=== PATIENT | female | born 1990 | race Caucasian/White ===

== ENCOUNTER 2016-04-18 23:08 | Emergency (ER) | payer MEDICAID, OTHER ==
[2016-04-18] MEDS ORDERED: Lidocaine PATCH 5%* 1 PATCH TRANSDERM SCH (23:45)
[2016-04-18] MEDS ORDERED: Acetaminophen TAB* 325 MG PO ONE (23:51)
[2016-04-18] MEDS ORDERED: Cyclobenzaprine TAB* 10 MG PO ONE (23:51)
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
[2016-04-19 02:30] VITALS: BP 87/71
--- NOTE | 2016-04-19 08:02 | RAD ---
HISTORY: Trauma, back pain COMPARISONS: November 15, 2012 VIEWS: 3, Frontal and lateral views of the thoracic spine. FINDINGS: ALIGNMENT: The alignment is normal. VERTEBRAL BODIES: The vertebral body heights are normal. The interpedicular distances are normal. JOINTS: Unremarkable. INTERVERTEBRAL DISCS: There is diffuse loss of intervertebral disc height. SOFT TISSUE: Unremarkable OTHER: The visualized lungs are clear. IMPRESSION: DEGENERATIVE CHANGES
[2016-04-19] MEDS ORDERED: Lidocaine Patch REMOVE* 1 NOTE MISC PATCH OFF SCH (21:00)
== END 2016-04-19 02:28 | disposition home or self-care (01) ==
LOC: ED 23:08
DX: S39.92XA Unspecified injury of lower back, initial encounter (principal); M54.5 Low back pain; V47.5XXA Car driver injured in collision with fixed or stationary object in traffic accident, initial encounter; Y93.9 Activity, unspecified; Y92.9 Unspecified place or not applicable; Y99.9 Unspecified external cause status
CPT/HCPCS: 72080; 99283; A9270-GY

== ENCOUNTER 2016-08-31 14:55 | Emergency (ER) | payer MEDICAID, OTHER ==
[2016-08-31 15:15] VITALS: BP 121/86
--- NOTE | 2016-08-31 15:27 | UC ---
Laceration HPI - HPI Summary HPI Summary: complaint of cutting her right thumb on a glass glass broke and sliced hier finger lots of bleeding and she thimks there is glass in the incision last tetanus 2.5 years ago when he daughter was born - History Of Current Complaint Chief Complaint: UCLaceration Stated Complaint: FINGER LACERATION Time Seen by Provider: 08/31/16 15:05 Hx Obtained From: Patient Laceration Location: Finger - Allergies/Home Medications Allergies/Adverse Reactions: Allergies Allergy/AdvReac Type Severity Reaction Status Date / Time No Known Allergies Allergy Verified 08/31/16 15:15 PMH/Surg Hx/FS Hx/Imm Hx Previously Healthy: Yes Endocrine History Of: Denies: Diabetes Cardiovascular History Of: Denies: Cardiac Disorders, Hypertension, Pacemaker/ICD Respiratory History Of: Reports: Asthma - WILL BRING INHALER, Bronchitis Denies: COPD, Pneumonia, Pulmonary Embolism GI/ History Of: Denies: Ulcer Neurological History Of: Reports: Migraine Denies: TIA, CVA, Dementia, Seizures Psychological History Of: Reports: Anxiety - NO MEDS, Depression - NO MEDS, Bipolar Disorder Denies: Schizophrenia Cancer History Of: Denies: Lung Cancer Other History Of: Negative For: Anticoagulant Therapy - Surgical History Surgical History: Yes Surgery Procedure, Year, and Place: APPENDECTOMY, OVARIAN CYST EXCISION AGE 15 [facility]. CSECTION 2013 [facility]. [facility] W[facility]ST 06/2015, [facility] - Family History Known Family History: Positive: Unknown Negative: Cardiac Disease, Hypertension, Diabetes Family History: NON CONTRIBUTORY - Social History Occupation: Employed Full-time Lives: With Family Alcohol Use: None Substance Use Type: None Substance Use Comment - Amount & Last Used: None at present. hx: documented use on 05/21/13, 07/17/13, 07/29/13 Smoking Status (MU): Heavy Every Day Tobacco Smoker Type: Cigarettes Amount Used/How Often: 1 ppd Length of Time of Smoking/Using Tobacco: 5-7 YRS Have You Smoked in the Last Year: Yes When Did the Patient Quit Smoking/Using Tobacco: 1 PPD Household Exposure Type: Cigarettes Cessation Counseling: Patient Advised to Stop - Immunization History Most Recent Influenza Vaccination: unsure Most Recent Tetanus Shot: unsure Most Recent Pneumonia Vaccination: none Review of Systems Constitutional: Negative Skin: Other - laceration Eyes: Negative ENT: Negative Respiratory: Negative Cardiovascular: Negative Gastrointestinal: Negative Genitourinary: Negative Motor: Negative Neurovascular: Negative Musculoskeletal: Negative Neurological: Negative Psychological: Negative All Other Systems Reviewed And Are Negative: Yes Physical Exam Triage Information Reviewed: Yes Appearance: No Pain Distress, Well-Nourished Vital Signs: Initial Vital Signs Temp 97.8 F 08/31/16 15:10 Pulse 85 08/31/16 15:10 Resp 20 08/31/16 15:10 BP 121/86 08/31/16 15:10 Pulse Ox 99 08/31/16 15:10 Vital Signs Reviewed: Yes Eyes: Positive: Conjunctiva Clear ENT: Positive: Pharynx normal, TMs normal Neck: Positive: No Lymphadenopathy Respiratory: Positive: Lungs clear, Normal breath sounds, No respiratory distress Cardiovascular: Positive: RRR, No Murmur, Pulses Normal Abdomen Description: Positive: Nontender, Soft Bowel Sounds: Positive: Present Musculoskeletal: Positive: Other: - right thumb- 6mm laceration medial side of thumb underneath fingernail Neurological: Positive: Alert Psychological Exam: Normal Skin: Positive: Other - see muckuloskeletal Laceration Repair - Laceration Repair 1 Description: Linear - small peice of galss removed with forcep splinters Laceration Size After Repair: Length (cm) - 6mm, Width (mm) - 2mm, Depth (mm) - 2mm Modified For Repair: No Cleansing Completed Via Routine Prep: Yes Irrigation With Pressure Irrigation Device: No Closure Material: Skin Adhesive, SteriStrips Laceration Course/Dx - Differential Dx - Laceration/Wound Differental Diagnoses: Laceration Provider Diagnoses: laceration - right thumb Discharge - Discharge Plan Condition: Stable Disposition: HOME Patient Education Materials: Skin Adhesive Care (ED), Steristrips (ED) Forms: *Work Release Referrals: Marcos Recio MD [Primary Care Provider] - Additional Instructions: LACERATION What is a Laceration? Laceration is the medical name for a cut. Treatment Recommendations: Keep the wound clean and dry for at least the next two (2) days. Keep the dressing clean if at all possible. If you must work in surroundings that will dirty the wound or dressing, wear a protective covering such as a glove. If the wound does get dirty, clean it as soon as you can with mild soap and water using a patting action. Do not rub or scrub vigorously. Then pat it dry completely. If a dressing was placed on the wound, you should put a clean one on at least daily and whenever you clean the wound. You can apply antibiotic ointment such as Bacitracin ointment to the wound each time you change the dressing. Avoid using the injured part as much as possible. If the wound is near a joint , try not to bend the joint too much. Call Your Doctor or Return Here IF: Your wound becomes red, warm, swollen or more painful. There are red streaks coming from the wound. You develop a fever or shaking chills. Pus or bad smelling fluid comes out of the wound. You have any other symptoms that worry you.
[2016-08-31] MEDS ORDERED: Benzoin Compound STICK ONE (15:32)
[2016-08-31] MEDS ORDERED: Lidocaine 2% 10 ML* VIAL INJ ONE (15:45)
[2016-08-31] MEDS ORDERED: Lidocaine 2% PF * 5 ML VIAL ONE (15:47)
== END 2016-08-31 16:12 | disposition home or self-care (01) ==
LOC: UCEAST 14:55
DX: S61.011A Laceration without foreign body of right thumb without damage to nail, initial encounter (principal); W25.XXXA Contact with sharp glass, initial encounter; Y93.9 Activity, unspecified; Y99.9 Unspecified external cause status; F17.210 Nicotine dependence, cigarettes, uncomplicated
CPT/HCPCS: 12001; 99211; G0463; J2001

== ENCOUNTER → 2016-09-21 17:27 | Emergency (ER) | payer OTHER, MEDICAID ==
[2016-09-21 19:01] VITALS: BP 100/44
== END | disposition left against medical advice (07) ==
LOC: ED 17:27
DX: R53.1 Weakness (principal)
CPT/HCPCS: 93005

== ENCOUNTER 2017-05-11 07:15 | Inpatient (IN) | payer OTHER, MEDICAID ==
[2017-05-11] MEDS ORDERED: ceFOXitin 2 GM IVPREMIX* 2 GM/50 ML BAG ONE (07:55)
[2017-05-11] MEDS ORDERED: Sodium Citrate/Citric Acid* 15 ML UDC ONE (07:55)
[2017-05-11 08:05] LABS: Hematocrit 37 % (35-47); Hemoglobin 12.6 g/dl (12.0-16.0); Mean Corpuscular HGB Conc 34 g/dl (31-36); Mean Corpuscular Hemoglobin 32 pg (27-31); Mean Corpuscular Volume 95 fL (80-97); Mean Platelet Volume 9 um3 (7.4-10.4); Platelet Count 309 10^3/ul (150-450); Red Blood Count 3.89 10^6/ul (4.0-5.4); Red Cell Distribution Width 13 % (10.5-15); White Blood Count 16.1 10^3/ul (3.5-10.8)
[2017-05-11 08:55] LABS: ABS Basophils 0.2 10^3/ul (0-0.2); ABS Eosinophils 0.6 10^3/ul (0-0.6); ABS Lymphocytes 2.8 10^3/ul (1.0-4.8); ABS Monocytes 1.6 10^3/ul (0-0.8); ABS Neutrophils 11.1 10^3/ul (1.5-7.7); ABS Nucleated RBC 0 10^3/ul; Eosinophil % 3.5 % (0-6); Lymphocyte % 17.1 % (25-47); Nucleated Red Blood Cells % 0
[2017-05-11] MEDS ORDERED: Morphine PF AMP (0.5MG/ML)* 5 MG/10 ML AMP ONE (09:05)
[2017-05-11] MEDS ORDERED: Phenylephrine IV* 40 MCG/ML 10 ML SYRINGE ONE (09:05)
[2017-05-11] MEDS ORDERED: OXYTOCIN* 10 UNITS/ML 1 ML VIAL ONE (09:36)
[2017-05-11] MEDS ORDERED: Ondansetron INJ* 2 MG/ML VIAL ONE (09:36)
[2017-05-11] MEDS ORDERED: Ondansetron INJ* 2 MG/ML VIAL IV PRN (10:36)
[2017-05-11] MEDS ORDERED: Naloxone* 0.4 MG/ML 1 ML VIAL IV PRN ×2 (10:36→10:38)
[2017-05-11] MEDS ORDERED: Ketorolac INJ* 30 MG/ML 1 ML VIAL IV PRN (10:36)
[2017-05-11] MEDS ORDERED: oxyCODONE/Acetamin 5/325 MG* TAB PO PRN ×2 (10:36→10:43)
[2017-05-11] MEDS ORDERED: fentaNYL* 50 MCG/ML 2 ML VIAL (100 MCG VIAL) IV PRN (10:38)
[2017-05-11] MEDS ORDERED: Witch Hazel PAD* JAR TOPICAL PRN (10:43)
[2017-05-11] MEDS ORDERED: Nalbuphine* 20 MG/ML 1 ML VIAL ONE (11:13)
[2017-05-11] MEDS ORDERED: fentaNYL* 50 MCG/ML 2 ML VIAL (100 MCG VIAL) ONE (11:48)
[2017-05-11] MEDS: Mouth Piece, Nicotine* 1 EACH CARTRIDGE INH PRN ×2 (12:56→16:14)
[2017-05-11] MEDS: Simethicone TAB* 80 MG TAB.CHEW PO SCH ×3 (14:07→21:48)
[2017-05-11] MEDS: oxyCODONE/Acetamin 5/325 MG* TAB PO PRN ×3 (14:07→21:48)
[2017-05-11] MEDS: Docusate CAP* 100 MG PO SCH ×2 (14:07→21:48)
[2017-05-11] MEDS: Nicotine Inhaler* 10 MG AMP INH PRN ×2 (16:15→20:45)
[2017-05-11] MEDS: Nalbuphine* 20 MG/ML 1 ML VIAL IV PRN ×2 (16:53→23:08)
[2017-05-11] MEDS: Ibuprofen TAB* 600 MG PO SCH (18:17)
[2017-05-12] MEDS: Ibuprofen TAB* 600 MG PO SCH ×5 (00:13→17:53)
--- NOTE | 2017-05-12 00:19 | OP ---
DATE OF OPERATION: 05/11/17 - ROOM #[id number] DATE OF : 89 SURGEON: Yashira Alarcon MD AUTOMOBILE SERVICE ADVISOR: Dominick Johnson CNM ANESTHESIOLOGIST: Dr. Marcus Reynoso. ANESTHESIA: Spinal. PRE-OP DIAGNOSES: 39 weeks gestation with history of prior and polyhydramnios. POST-OP DIAGNOSES: 39 weeks gestation with history of prior and polyhydramnios. OPERATIVE PROCEDURE: Repeat low transverse section. ESTIMATED BLOOD LOSS: 600 cc. URINE OUTPUT: 150 cc. IV FLUIDS: 2300 cc lactated Ringer's. MATERIALS TO LAB: Cord blood. INDICATIONS: This patient was a 27-year-old 4, para 1-0-2-1, who presented today at 39 plus 0 weeks gestation for a scheduled section. She was extensively counseled and consent was signed. FINDINGS: Copious amount of clear amniotic fluid. Normal appearing uterus, fallopian tubes and ovaries. Delivery is productive of a male weighing 7 pounds 12 ounces with Apgars of 9 and 9. Time of delivery was 0949. COMPLICATIONS: None. DESCRIPTION OF PROCEDURE: The risks, benefits, and alternatives were described to the patient, and informed consent was obtained. The patient was taken to the operating room with IV running, where spinal anesthesia was induced and found to be adequate. The patient was prepped and draped in normal sterile fashion in the dorsal supine position with a leftward tilt. A Pfannenstiel skin incision was made with a scalpel through the patient's previous incision. This was carried down to the underlying fascia using the scalpel. The fascia was scored in the midline, and the incision was extended using Sanford scissors. The fascia was dissected off the underlying rectus muscles using blunt and sharp dissection. The rectus muscles were in the midline using dissection with a Jenae clamp. The peritoneum was then entered bluntly. A bladder blade was placed. A bladder flap was created sharply using Metzenbaum scissors. A low transverse uterine incision was then made with the scalpel. This was carried down to the amniotic membranes. The membranes were then ruptured, productive of clear fluid. The uterine incision was extended using blunt traction. The head was elevated to the level of the incision, and, with fundal pressure, the head delivered without difficulty. The shoulders then were also both delivered and the body followed. The had excellent tone and cried immediately on delivery. The cord was doubly clamped and cut. The infant was then handed to the awaiting sash maker. Cord blood was collected. The placenta was delivered with manual extraction. The uterus was then exteriorized and cleared of all clots and debris. The uterine incision was then reapproximated using 0 Polysorb in a running-locked fashion. A second layer of imbricating 0 Polysorb sutures was then also placed for good hemostasis. The posterior cul-de-sac was irrigated with saline. The uterus was then returned to the abdomen. The incision was reinspected and still noted to be hemostatic. The peritoneum was closed with 2-0 chromic in a running fashion. The fascia was closed with 0 Polysorb in a running fashion. The subcutaneous tissues were copiously irrigated and made hemostatic using the Bovie. The subcutaneous tissues were then reapproximated using 2-0 chromic in interrupted sutures. The skin was then closed with . A sterile bandage was then placed over the incision. The patient tolerated the procedure well. Sponge, lap, and needle counts were correct x2. [id number]/[facility] #: [id number] [facility]ITALRo
[2017-05-12] MEDS: oxyCODONE/Acetamin 5/325 MG* TAB PO PRN ×6 (01:53→22:23)
[2017-05-12] MEDS: Nicotine Inhaler* 10 MG AMP INH PRN ×4 (01:53→17:59)
[2017-05-12 06:16] LABS: Hematocrit 34 % (35-47); Hemoglobin 11.6 g/dl (12.0-16.0); Mean Corpuscular HGB Conc 34 g/dl (31-36); Mean Corpuscular Hemoglobin 33 pg (27-31); Mean Corpuscular Volume 96 fL (80-97); Mean Platelet Volume 9 um3 (7.4-10.4); Platelet Count 266 10^3/ul (150-450); Red Blood Count 3.53 10^6/ul (4.0-5.4); Red Cell Distribution Width 13 % (10.5-15); White Blood Count 18.9 10^3/ul (3.5-10.8)
[2017-05-12 06:21] LABS: ABS Basophils 0.2 10^3/ul (0-0.2); ABS Eosinophils 0.6 10^3/ul (0-0.6); ABS Lymphocytes 3.2 10^3/ul (1.0-4.8); ABS Monocytes 1.7 10^3/ul (0-0.8); ABS Neutrophils 13.3 10^3/ul (1.5-7.7); ABS Nucleated RBC 0 10^3/ul; Lymphocyte % 16.9 % (25-47); Nucleated Red Blood Cells % 0
[2017-05-12] MEDS ORDERED: Ferrous Gluconate TAB* 324 MG TAB PO SCH (09:00)
[2017-05-12] MEDS: Docusate CAP* 100 MG PO SCH ×3 (09:37→22:23)
[2017-05-12] MEDS: Simethicone TAB* 80 MG TAB.CHEW PO SCH ×4 (09:38→22:23)
[2017-05-12] MEDS: Mouth Piece, Nicotine* 1 EACH CARTRIDGE INH PRN (09:41)
[2017-05-13] MEDS: Ibuprofen TAB* 600 MG PO SCH ×2 (00:22→06:24)
[2017-05-13] MEDS: oxyCODONE/Acetamin 5/325 MG* TAB PO PRN ×3 (02:22→11:24)
[2017-05-13] MEDS: Nicotine Inhaler* 10 MG AMP INH PRN (03:48)
[2017-05-13 08:44] VITALS: BP 111/61
[2017-05-13] MEDS: Docusate CAP* 100 MG PO SCH (09:17)
[2017-05-13] MEDS: Simethicone TAB* 80 MG TAB.CHEW PO SCH (09:17)
== END 2017-05-13 12:02 | disposition home or self-care (01) | DRG 765 ==
LOC: MCHOB 07:15
PROVIDERS: ADMIT Obstetrics & Gynecology; ATTEND Obstetrics & Gynecology
PROC: 10D00Z1 Extraction of Products of Conception, Low, Open Approach (ICD-10-PCS; principal; 2017-05-11 08:45)
DX: O34.211 Maternal care for low transverse scar from previous cesarean delivery (principal); O40.3XX0 Polyhydramnios, third trimester, not applicable or unspecified; F17.210 Nicotine dependence, cigarettes, uncomplicated; O99.344 Other mental disorders complicating childbirth; O99.334 Smoking (tobacco) complicating childbirth; Z3A.39 39 weeks gestation of pregnancy; Z37.0 Single live birth; F31.9 Bipolar disorder, unspecified; G43.909 Migraine, unspecified, not intractable, without status migrainosus; J45.909 Unspecified asthma, uncomplicated
CPT/HCPCS: 36415; 85025; 86850; 86900; 86901; A9270-GY; J0694; J1885; J2300; J2405; J2590; J3010

== ENCOUNTER 2017-11-01 17:01 | Emergency (ER) | payer OTHER, MEDICAID ==
[2017-11-01 17:16] VITALS: BP 110/69
[2017-11-01] MEDS ORDERED: Ketorolac INJ* 60 MG/2 ML VIAL IM ONE (17:28)
--- NOTE | 2017-11-01 17:35 | UC ---
Abdominal Pain Female HPI - HPI Summary HPI Summary: This is scrlaura Conn documenting for attending Bre Mcnamara M.D. Patient is a 27 y/o female who presents to the c/o abdominal pain. She states the cramping pain started suddenly 2 hours ago, is worst mid-abdominal, radiates to her back, and is rated an 8/10 in severity. The pain is worse when laying on her back. Patient states this feels exactly like her previous miscarriage and labor. She also c/o intermittent nausea due to pain. Patient denies any vomiting , diarrhea, vaginal bleeding, vaginal discharge, headache, or dysuria. As per friend, her color is abnormally pale. Patient had a 6 months ago, and states there were no problems with delivery. Since the she has only had 2 menstrual periods, and states the last one was abnormally long, lasting 2 weeks total, and ended one week ago. Patient has not been on control, but states there is no chance of her being . A2. Patient had a normal BM this morning. ADD: Following decreased pain post toradol, more hx was disclosed. Has had 2 partners in the past 4 months. Second partner advised her that he "had something " but did not disclose what STI that was. [facility] , and had Chalydia, GC and vaginal swabs done, not HIV or syphilis. Was treated for Chlamydia 2 years ago. Has not had intercourse since before her 10/20 menses, has been using condoms for contraception. - History of Current Complaint Stated Complaint: ABDOMINAL PAIN Time Seen by Provider: 11/01/17 17:07 Hx Obtained From: Patient, Family/Reexaminer - Friend Hx Last Menstrual Period: 10/20/2017 Onset/Duration: Sudden Onset, Lasting Hours - 2, Still Present Severity Currently: Severe Pain Intensity: 8 Pain Scale Used: 0-10 Numeric Location: Other - Mid-abdominal Radiates: Yes Radiates to: Back Character: Cramping Aggravating Factor(s): Other: - Laying down Alleviating Factor(s): Nothing Associated Signs and Symptoms: Positive: Nausea. Negative: Urinary Symptoms, Vaginal Bleeding, Vaginal Discharge, Vomiting, Diarrhea Allergies/Adverse Reactions: Allergies Allergy/AdvReac Type Severity Reaction Status Date / Time No Known Allergies Allergy Verified 03/04/17 10:21 Home Medications: Home Medications Amphetamine/Dextroamph ER(NF) [Adderal XR (NF)] 11/01/17 [History] PMH/Surg Hx/FS Hx/Imm Hx Previously Healthy: Yes GI/ History: Other Other GI/ History: Appendicitis, ovarian cysts Psychological History: Anxiety, Depression, Bipolar Disorder Other History Of: Negative For: Anticoagulant Therapy - Surgical History Surgical History: Yes Surgery Procedure, Year, and Place: APPENDECTOMY, OVARIAN CYST EXCISION AGE 15 [facility]. CSECTION 2013 [facility]. RIGHT WRIST 06/2015, [facility] - Family History Known Family History: Negative: Cardiac Disease, Hypertension, Diabetes Family History: NON CONTRIBUTORY - Social History Occupation: Employed Full-time Alcohol Use: None Substance Use Type: Marijuana Substance Use Comment - Amount & Last Used: last use was Jan 2017 Smoking Status (MU): Heavy Every Day Tobacco Smoker Type: Cigarettes Amount Used/How Often: 1 ppd Length of Time of Smoking/Using Tobacco: 5-7 YRS Have You Smoked in the Last Year: Yes When Did the Patient Quit Smoking/Using Tobacco: 1 PPD Household Exposure Type: Cigarettes - Immunization History Most Recent Influenza Vaccination: unsure Most Recent Tetanus Shot: unsure Most Recent Pneumonia Vaccination: none Review of Systems Constitutional: Negative Skin: Negative Eyes: Negative ENT: Negative Respiratory: Negative Cardiovascular: Negative Gastrointestinal: Abdominal Pain, Nausea, Other - NEGATIVE: vomiting, diarrhea Genitourinary: Negative - dysuria, vaginal bleeding/discharge Motor: Negative Neurovascular: Negative Musculoskeletal: Negative Neurological: Negative - headache Psychological: Negative All Other Systems Reviewed And Are Negative: Yes Physical Exam Triage Information Reviewed: Yes Appearance: Pain Distress - uncomfortable, with significant improvement post toradol., Thin Vital Signs: Initial Vital Signs Temp 98.2 F 11/01/17 17:10 Pulse 89 11/01/17 17:10 Resp 16 11/01/17 17:10 BP 110/69 11/01/17 17:10 Pulse Ox 100 11/01/17 17:10 ENT: Positive: Pharynx normal Neck: Positive: Supple, Nontender, No Lymphadenopathy Respiratory: Positive: Lungs clear, Normal breath sounds Cardiovascular: Positive: RRR, No Murmur Abdomen Description: Positive: Soft, Guarding - voluntary guarding on initial exam. Negative: CVA Tenderness (R), CVA Tenderness (L), Distended Bowel Sounds: Positive: Present Pelvic Exam: Positive: External Exam Normal, Discharge - moderate yellow discharge without significant cervical excitation. + cervical inflammation, although not friable. Mobile uterus with tenderness. Musculoskeletal Exam: Normal Neurological Exam: Normal Psychological Exam: Other - Irritable Skin Exam: Normal Abd Pain Female Course/Dx - Course Course Of Treatment: zithromax for possible Chlamydia - Differential Dx/Diagnosis Differential Diagnosis: Pelvic Inflammatory Disease Provider Diagnoses: cervicitis Discharge - Sign-Out/Discharge Documenting (check all that apply): Patient Departure - Discharge Plan Condition: Stable Disposition: HOME Patient Education Materials: Pelvic Inflammatory Disease (ED) Referrals: Marcos Recio MD [Primary Care Provider] - Additional Instructions: You have been given a single dose of azithromycin for possible Chlamydia infection. Continue use of ibuprofen for pain, but the next dose is due no earlier than midnight because you have had a dose of toradol. Follow up with your primary doctor if you continue to have pain, because imaging studies might be needed. - Billing Disposition and Condition Condition: STABLE Disposition: Home
[2017-11-01] MEDS ORDERED: Azithromycin TAB* 250 MG PO ONE (18:44)
[2017-11-01] MEDS ORDERED: Ibuprofen TAB* 600 MG PO ONE (18:46)
--- NOTE | 2017-11-04 20:16 | UC ---
- Progress Note Progress Note: Please call pt and notify her that her genital culture was positive for yeast. Diflucan sent to pharmacy. May take one pill now and repeat in 3 days if still having symptoms Discharge - Sign-Out/Discharge Documenting (check all that apply): Post-Discharge Follow Up - Discharge Plan Condition: Stable Disposition: HOME Prescriptions: Fluconazole 150 MG (NF) [Diflucan 150 mg (NF)] 150 mg PO ONCE #2 tab Patient Education Materials: Pelvic Inflammatory Disease (ED) Referrals: Marcos Recio MD [Primary Care Provider] - Additional Instructions: You have been given a single dose of azithromycin for possible Chlamydia infection. Continue use of ibuprofen for pain, but the next dose is due no earlier than midnight because you have had a dose of toradol. Follow up with your primary doctor if you continue to have pain, because imaging studies might be needed. - Billing Disposition and Condition Condition: STABLE Disposition: Home
== END 2017-11-01 19:13 | disposition home or self-care (01) ==
LOC: UCEAST 17:01
DX: N72 Inflammatory disease of cervix uteri (principal); R11.0 Nausea; F17.210 Nicotine dependence, cigarettes, uncomplicated
CPT/HCPCS: 81003; 84702; 87070; 87077; 87491; 87591; 96372; 99203; A9270-GY; G0463; J1885

== ENCOUNTER 2018-03-12 08:11 | Day surgery (SDC) | payer OTHER, MEDICAID ==
--- NOTE | 2018-03-04 23:38 | HP ---
PREOPERATIVE HISTORY AND PHYSICAL: DATE OF ADMISSION/SURGERY: 03/12/18 DATE OF OFFICE VISIT/ENCOUNTER: 02/20/18 ATTENDING SURGEON: Shaista Mckenzie MD * (DICTATED BY NAYAN MEDINA) PROCEDURE: Left wrist carpal tunnel release. CHIEF COMPLAINT: Numbness and tingling in left hand. HISTORY OF PRESENT ILLNESS: This is a 27-year-old female who complains of numbness and tingling in her left hand since the summer. She is having symptoms quite persistently during the day and also those that awaken her at night. A couple of years ago, she had a carpal tunnel release performed on the right and has done quite well with that. She has now consented to proceed with a left wrist carpal tunnel release. PAST MEDICAL HISTORY: 1. Bipolar disorder. 2. ADHD. 3. Anxiety. 4. History of miscarriage in September of 2015. PAST SURGICAL HISTORY: 1. Right de Quervain's release, June 2015. 2. Appendectomy in 2004. 3. x2. 4. Right carpal tunnel release in 2015. CURRENT MEDICATIONS: 1. Adderall XR 30 mg daily. 2. Adderall 10 mg b.i.d. ALLERGIES: No known drug allergies. FAMILY MEDICAL HISTORY: Noncontributory. SOCIAL HISTORY: The patient is employed with [employer]. She is a current smoker, approximately a pack per day and has done so for the past 12 years. She denies illicit drug use and does not drink alcohol. REVIEW OF SYSTEMS: Negative for general, cephalic, cardiovascular, respiratory , GI, , other musculoskeletal, integumentary, endocrine, neurologic, and hematologic symptoms. Infectious Disease: Negative for history of MRSA, hepatitis C, HIV. PHYSICAL EXAMINATION GENERAL: Well-developed, well-nourished, 27-year-old female, in no acute distress. VITAL SIGNS: Height 5 feet 1 inch, weight 120 pounds. Pulse rate 73, blood pressure 118/58. HEENT: Normocephalic, atraumatic. Pupils are equal, round, and reactive to light and accommodation. Extraocular movements are intact. Throat is clear. NECK: Supple. No palpable lymph nodes. PULMONARY: Lungs are clear to auscultation bilaterally. No wheezes, rales, or rhonchi. CARDIOVASCULAR: Regular rate and rhythm. S1, S2. No murmurs, rubs, or gallops. No edema. ABDOMEN: Positive bowel sounds. Soft, nontender. NEUROLOGICAL: Alert and oriented x3. Cranial nerves II through XII are intact. Sensation is intact to light touch. MUSCULOSKELETAL: On exam of her left wrist and hand, there is no visible thenar wasting abduction. She can fully flex and extend her fingers. Wrist motion is normal. She has a positive Tinel's sign at the median nerve at the wrist. Negative Tinel's sign at the ulnar nerve. IMPRESSION: Left carpal tunnel syndrome. PLAN: The patient is scheduled to undergo a left wrist carpal tunnel release with Dr. Mckenzie on 03/12/18. She will return to the office 10 days postop for followup and suture removal. She will use Ultracet for postoperative pain management. NAYAN MEDINA [id number]/[facility] #: [id number] SAUNDRA
[~2018-03-12 08:11] MED LIST: Buffered Lidocaine 0.9% SYRIN* 5 ML/SYR SYRINGE INTRADERM ONE; Dexamethasone IV* 4 MG/ML 1 ML (4 MG) IV SLOW PU ONE; Dexamethasone IV* 4 MG/ML 1 ML (4 MG) ONE; Famotidine IV* 10 MG/ML 2 ML (20 mg) IV ONE; Famotidine IV* 10 MG/ML 2 ML (20 mg) ONE
[2018-03-12] MEDS ORDERED: Lidocaine 1% INJ* 10 MG/ML 30 ML SDV ONE (08:34)
[2018-03-12] MEDS ORDERED: fentaNYL* 50 MCG/ML 2 ML VIAL (100 MCG VIAL) ONE (10:10)
[2018-03-12] MEDS ORDERED: Propofol* 10 MG/ML 20 ML BTL ONE (10:10)
[2018-03-12] MEDS ORDERED: Midazolam* 1 MG/ML 2 ML VIAL (2 MG) ONE (10:10)
[2018-03-12] MEDS ORDERED: Lidocaine 2% PF * 5 ML VIAL ONE (10:10)
[2018-03-12] MEDS ORDERED: Naloxone* 0.4 MG/ML 1 ML VIAL IV PRN (10:18)
[2018-03-12] MEDS ORDERED: Ondansetron INJ* 2 MG/ML VIAL IV PRN (10:18)
[2018-03-12] MEDS ORDERED: HYDROcodone/ACETAMIN 5-325 MG* 1 TAB PO PRN (10:18)
[2018-03-12] MEDS ORDERED: Ketorolac INJ* 30 MG/ML 1 ML VIAL IV PRN (10:18)
[2018-03-12] MEDS ORDERED: fentaNYL* 50 MCG/ML 2 ML VIAL (100 MCG VIAL) IV PRN (10:18)
[2018-03-12] MEDS ORDERED: oxyCODONE/Acetamin 5/325 MG* TAB PO PRN (10:18)
[2018-03-12] MEDS ORDERED: DiMENhydriNATE IV* 50 MG/ML VIAL IV PUSH PRN (10:18)
[2018-03-12 11:02] VITALS: BP 110/59
--- NOTE | 2018-03-13 04:31 | OP ---
DATE OF OPERATION: 03/12/18 [facility] DATE OF : 89 SURGEON: Shaista Mckenzie MD WATER SYSTEMS DESIGNER: NAYAN Rodgers ANESTHESIA: Local MAC. PRE-OP DIAGNOSIS: Left carpal tunnel syndrome. POST-OP DIAGNOSIS: Left carpal tunnel syndrome. OPERATIVE PROCEDURE: Left carpal tunnel release. ESTIMATED BLOOD LOSS: Zero. TOURNIQUET TIME: Approximately 5 minutes. INDICATIONS FOR PROCEDURE: Shaista is a 28-year-old female with numbness and tingling in the median nerve distribution of her left hand. She presents for the left carpal tunnel release. DESCRIPTION OF PROCEDURE: The patient was brought to the operating room and was given a sedation anesthetic and a local infiltration of 10 cc of 1% plain lidocaine in the palm of her left hand. The skin of her left hand and forearm was prepped and draped in the usual sterile fashion. The hand and forearm were exsanguinated and the tourniquet elevated to 250 mmHg. A longitudinal incision was made in the center of the palm in line with the ring finger. We dissected through the subcutaneous tissue down to the transverse carpal ligament. The ligament was divided sharply with a knife and then more proximally with the scissors. The nerve was dissected free from the surrounding tissue and there was an area of moderate compression in the mid portion of the ligament. The wound was irrigated and skin edges were reapproximated with 4-0 nylon suture. The wound was dressed with Xeroform, 4x4, Webril, and an Ry wrap. The patient tolerated the procedure well and was brought to the recovery room in good condition. [id number]/[facility] #: [id number] SAUNDRA
== END 2018-03-12 11:12 | disposition home or self-care (01) ==
LOC: OREAST 08:11
PROVIDERS: ATTEND Orthopaedic Surgery
DX: G56.02 Carpal tunnel syndrome, left upper limb (principal); F31.9 Bipolar disorder, unspecified; F90.9 Attention-deficit hyperactivity disorder, unspecified type; Z72.0 Tobacco use
CPT/HCPCS: 81025; J1100; J2250; J2704; J3010